=== PATIENT | female | born 1945 | race Caucasian/White ===

== ENCOUNTER 2018-12-05 05:09 | Day surgery (SDC) | payer MEDICARE, OTHER ==
[~2018-12-05] VITALS: Ht 208.3 cm; Wt 73.9 kg
[~2018-12-05 05:09] MED LIST: ALBUTEROL SULF8.5 GM INH; BENICAR5 MG PO; CRESTOR5 MG PO; DULERA 200 MCG8.8 GM INH; GLUCOPHAGE1000 MG PO; HCTZ25 MG PO; IPRAT-ALBUT 0.5-3 ML UPD; LEVOTHYROXINE125 MCG PO; MUCINEX600 MG PO; PEPCID AC20 MG PO; SINGULAIR10 MG PO; TESSALON PERLE100 MG PO
[2018-12-05 05:33] LABS: HEMATOCRIT 43.6 % (36.0-48.0); HEMOGLOBIN 14.7 g/dL (12-16); MCH 30.2 pg (26.0-34.0); MCHC 33.7 g/dL (31.0-37.0); MCV 89.7 fL (80.0-100.0); MEAN PLATELET VOLUME 9.6 fL (7.4-10.4); RBC 4.86 10x6/uL (4.00-5.40); RDW 13.6 % (11.5-14.5); WBC 11.5 10x3/uL (4.8-10.8)
[2018-12-05 05:46] LABS: ANION GAP 11.5 mmol/L (8-16); CALCIUM 8.9 mg/dL (8.5-10.1); CARBON DIOXIDE 25.4 mmol/L (21.0-32.0); CREATININE - SERUM 0.8 mg/dL (0.6-1.3); POTASSIUM - SERUM 3.9 mmol/L (3.5-5.1)
[2018-12-05 06:46] VITALS: BP 110/63; Ht 208.3 cm; Wt 73.9 kg
[2018-12-05] MEDS ORDERED: ULTRAM50 MG PO (07:53)
--- NOTE | 2018-12-05 10:19 | OP ---
PATIENT NAME: CATRACHO GONZALES MEDICAL RECORD: [id number] :43 LOCATION:[facility] ADMISSION DATE: SURGEON: ANTON HO DO DATE OF OPERATION: 12/05/2018 PROCEDURE PERFORMED: Right endoscopic carpal tunnel release. PREOPERATIVE DIAGNOSIS: Right carpal tunnel syndrome. POSTOPERATIVE DIAGNOSIS: Right carpal tunnel syndrome. INDICATIONS: Ms. Gonzales is a 73-year-old female, who has had right hand numbness for quite some time. The numbness and tingling are waking her up and giving her a lot of problems. She had a nerve conduction study, which showed positive carpal tunnel syndrome and median nerve entrapment at the wrist. She is aware of the risks including infection, bleeding, damage to nerves and vessels, need for further surgery, continued numbness, understanding we can alleviate her pain, but the numbness may not, the feeling may not come back due to the nerve entrapment for such a long time, and she signed the consent. SURGEON: Anton Ho DO DESCRIPTION OF PROCEDURE: The patient was taken to the operative suite, laid in supine position, given general anesthetic and LMA was placed. She was given a gram of Ancef preoperatively. Right upper extremity was prepped and draped in sterile fashion. A time-out was performed. Everyone was in agreement with correct side, site, patient, and procedure. Right upper extremity was then exsanguinated with an Esmarch and the tourniquet was inflated to 250 mmHg, was up for 10 minutes. Incision then was made at the volar wrist crease with a knife centered over the palmaris longus tendon. After the skin incision was made, blunt dissection was made down with Ragnell to the carpal tunnel. The forearm fascia was released from distal proximal and then the carpal tunnel was entered with the dilators. The sheath was then entered and the camera was then entered. The transverse carpal ligament was probed and rasped ensuring there was nothing in the ligament. A knife was then brought in through the sheath and raised up and the transverse carpal ligament was transected until fat herniated down into the carpal tunnel ensuring good release. This was then removed. The lights were turned on, and a pickup and scissors were used with loupe magnification and the remaining fibers if there were any of the transcarpal ligament were divided. The tourniquet was then let down. The site was injected with 0.5% Marcaine without epinephrine, 10 mL of it. The site was then closed with 5-0 Monocryl in inverted interrupted fashion. Steri-Strips, Adaptic, 4 x 4's, Kerlix, and Coban was lightly wrapped on the hand. She was awakened and taken to recovery in stable condition. BLOOD LOSS: Minimal. COMPLICATIONS: None. TRANSINT:[id number] Voice Confirmation ID: [id number] DOCUMENT ID: [id number] OPERATIVE REPORT [id number] CATRACHO GONZALES,ANTON Mckeon DO at 1019 CC: [id number] DICTATION DATE: 12/05/18 0756 ACUPUN[facility]URE PHYSICIAN: 12/05/18 0903 [facility] 12/05/18 [id number] [place] [address]
== END 2018-12-05 09:55 | disposition home or self-care (01) ==
LOC: D.OPS 05:09 → D.PAN 07:00 → D.OPS 09:55 → D.PAN 13:45
PROVIDERS: Anesthesiology; ATTEND Orthopaedic Surgery
DX: G56.01 Carpal tunnel syndrome, right upper limb (principal)